=== PATIENT | male | born 1960 | race Caucasian/White ===

== ENCOUNTER 2017-04-16 13:57 | Inpatient (IN) | payer SELFPAY ==
[~2017-04-16] VITALS: Ht 188 cm; Wt 108.6 kg
--- OUTSIDE RECORDS SUMMARY | 2017-04-16 14:02 | XMS REPORT | Continuity of Care Document ---
Demographics Preferred Language Unknown Marital Status Unknown Yarsani Affiliation Unknown Race Unknown Ethnic Group Unknown Author Author [facility] Address Unknown Phone Unavailable Allergies Medications Problems Date Dx Coded Attending Type Code Diagnosis Diagnosed By 02/03/2011 719.41 PAIN IN JOINT INVOLVING SHOULDER REGION Procedures Results Encounters ACCT No. Visit Date/Time Discharge Status Pt. Type Provider Facility Loc./Unit Complaint [id number] 06/04/2012 10:52:00 06/04/2012 23: 59:59 CLS Outpatient
[2017-04-16] MEDS ORDERED: NS IV 1000 ML 1,000 ML IV ONE (14:45)
[2017-04-16] MEDS ORDERED: KETOROLAC 30 MG/ML VIAL IVP STA (14:45)
[2017-04-16 15:10] LABS: BASOPHILS % (AUTO) 0 % (0-10); EOSINOPHILS # (AUTO) 0.1 10^3/uL (0.0-0.3); EOSINOPHILS % (AUTO) 1 % (0-10); LYMPHOCYTES # (AUTO) 0.9 X 10^3 (1.0-4.0); LYMPHOCYTES % (AUTO) 10 % (12-44); MEAN CORPUSCULAR HEMOGLOBIN 30 PG (25-34); MEAN CORPUSCULAR HGB CONC 36 G/DL (32-36); MEAN CORPUSCULAR VOLUME 83 FL (80-99); MEAN PLATELET VOLUME 10.1 FL (7.4-10.4); MONOCYTES # (AUTO) 0.8 X 10^3 (0.0-1.0); MONOCYTES % (AUTO) 9 % (0-12); NEUTROPHILS # (AUTO) 7.2 X 10^3 (1.8-7.8); NEUTROPHILS % (AUTO) 81 % (42-75); PLATELET COUNT 200 10^3/uL (130-400); RED BLOOD COUNT 4.68 10^6/uL (4.35-5.85); RED CELL DISTRIBUTION WIDTH 11.6 % (10.0-14.5); WHITE BLOOD COUNT 8.9 10^3/uL (4.3-11.0)
--- NOTE | 2017-04-16 15:12 | ED GI ---
General Chief Complaint: Abdominal/GI Problems Stated Complaint: UTI Nursing Triage Note: PT SENT TO ED BY [facility] AT HIS [facility] WITH C/O RLQ PAIN. HE WAS SEEN FOR OUTPT CT AND FOUND TO HAVE OBSRUCTING KIDNEY STONE. PT IS C/O N/V. DENIES URINARY S/S. Sepsis Screen: No Definite Risk Source of Information: Patient Exam Limitations: No Limitations History of Present Illness Time Seen By Provider: 14:57 Initial Comments Here with report of right sided abdominal pain that has been going on on and off since December but markedly worse since Thanksgiving on 04/09. At that time, pain was much worse and he had vomiting and he went to the [facility] and was found to have blood in his urine. He was seen by his work doctor and told had a CT scan done which showed a 1.3 cm obstructing stone in the right ureter. Pain is worse and now he has some fever. Apparently had some blood in his urine. Denies breathing problems, vomiting or diarrhea. The vomiting that he had several days ago has resolved. Timing/Duration: 1 Week Severity/Quality: Moderate, Severe Location: Flank (right-sided), Suprapubic Radiation: No Radiation Activities at Onset: None Modifying Factors: Worsens With Movement, Worsens With Resting Associated Symptoms: No Back Pain, No Chest Pain, No Fever/Chills, No Nausea/ Vomiting, No Shortness of Air, No Weakness Allergies and Home Medications Allergies Coded Allergies: No Known Drug Allergies (Unverified , 04/16/17) Review of Systems Constitutional: see HPI, No chills, fever, No weakness EENTM: No Symptoms Reported Respiratory: No Symptoms Reported Cardiovascular: No Symptoms Reported Gastrointestinal: See HPI, Abdominal Pain Genitourinary: See HPI, Hematuria, Pain Musculoskeletal: no symptoms reported Skin: no symptoms reported All Other Systems Reviewed Negative Unless Noted: Yes Past Akwyhoz-Upbicq-Euqopo Hx Patient Social History Alcohol Use: Denies Use Recreational Drug Use: No Smoking Status: Former Smoker Type Used: Cigarettes 2nd Hand Smoke Exposure: No Recent Foreign Travel: No Contact w/Someone Who Travel: No Recent Infectious Disease Expo: No Recent Hopitalizations: No Physical Abuse: No Sexual Abuse: No Seasonal Allergies Seasonal Allergies: No Surgeries History of Surgeries: No Respiratory History of Respiratory Disorde: No Cardiovascular History of Cardiac Disorders: No Neurological History of Neurological Disord: No Genitourinary History of Genitourinary Disor: Yes Genitourinary Disorders: Kidney Stones Gastrointestinal History of Gastrointestinal Di: No Musculoskeletal History of Musculoskeletal Dis: No Endocrine History of Endocrine Disorders: No HEENT History of HEENT Disorders: No Psychosocial Suicide Risk Score: 0 Reviewed Nursing Assessment Reviewed/Agree w Nursing PMH: Yes Family Medical History Significant Family History: No Pertinent Family Hx Physical Exam Vital Signs VS - Last 72 Hours, by Label 04/16/17 14:40 Temp 99.1 Pulse 77 Resp 16 B/P (MAP) 196/95 (128) Pulse Ox 98 O2 Delivery Room Air Capillary Refill : Less Than 3 Seconds General Appearance: WD/WN, no apparent distress HEENT: PERRL/EOMI, pharynx normal Neck: full range of motion, supple Respiratory: lungs clear, normal breath sounds Cardiovascular: regular rate, rhythm, no murmur Gastrointestinal: soft, tenderness (right flank and right side of the abdomen) Extremities: non-tender, normal inspection Back: no vertebral tenderness, No CVA tenderness (R), No CVA tenderness (L) Neurologic/Psychiatric: alert, oriented x 3 Skin: normal color, warm/dry Focused Exam Evaluation Lactate Level Laboratory Tests 04/16/17 14:55: Lactic Acid Level 0.64 Lactic Acid Level Laboratory Tests Test 04/16/17 14:55 Lactic Acid Level 0.64 MMOL/L (0.50-2.00) Progress/Results/Core Measures Results/Orders Lab Results Laboratory Tests Test 04/16/17 14:30 04/16/17 14:55 04/16/17 16:08 Range/Units White Blood Count 8.9 4.3-11.0 10^3/uL Red Blood Count 4.68 4.35-5.85 10^6/uL Hemoglobin 14.0 13.3-17.7 G/DL Hematocrit 39 L 40-54 % Mean Corpuscular Volume 83 80-99 FL Mean Corpuscular Hemoglobin 30 25-34 PG Mean Corpuscular Hemoglobin Concent 36 32-36 G/DL Red Cell Distribution Width 11.6 10.0-14.5 % Platelet Count 200 130-400 10^3/uL Mean Platelet Volume 10.1 7.4-10.4 FL Neutrophils (%) (Auto) 81 H 42-75 % Lymphocytes (%) (Auto) 10 L 12-44 % Monocytes (%) (Auto) 9 0-12 % Eosinophils (%) (Auto) 1 0-10 % Basophils (%) (Auto) 0 0-10 % Neutrophils # (Auto) 7.2 1.8-7.8 X 10^3 Lymphocytes # (Auto) 0.9 L 1.0-4.0 X 10^3 Monocytes # (Auto) 0.8 0.0-1.0 X 10^3 Eosinophils # (Auto) 0.1 0.0-0.3 10^3/uL Basophils # (Auto) 0.0 0.0-0.1 10^3/uL Prothrombin Time 12.7 12.2-14.7 SEC INR Comment 0.9 0.8-1.4 Activated Partial Thromboplast Time 26 24-35 SEC Sodium Level 140 135-145 MMOL/L Potassium Level 4.0 3.6-5.0 MMOL/L Chloride Level 106 98-107 MMOL/L Carbon Dioxide Level 26 21-32 MMOL/L Anion Gap 8 5-14 MMOL/L Blood Urea Nitrogen 22 H 7-18 MG/DL Creatinine 1.45 H 0.60-1.30 MG/DL Estimat Glomerular Filtration Rate 50 BUN/Creatinine Ratio 15 Glucose Level 90 70-105 MG/DL Calcium Level 10.5 H 8.5-10.1 MG/DL Total Bilirubin 1.4 H 0.1-1.0 MG/DL Aspartate Amino Transf (AST/SGOT) 26 5-34 U/L Alanine Aminotransferase (ALT/SGPT) 44 0-55 U/L Alkaline Phosphatase 77 40-136 U/L Total Protein 6.9 6.4-8.2 GM/DL Albumin 4.0 3.2-4.5 GM/DL Lactic Acid Level 0.64 0.50-2.00 MMOL/L Urine Color YELLOW Urine Clarity CLEAR Urine pH 7 5-9 Urine Specific Gill 1.010 L 1.016-1.022 Urine Protein NEGATIVE NEGATIVE Urine Glucose (UA) NEGATIVE NEGATIVE Urine Ketones 2+ H NEGATIVE Urine Nitrite NEGATIVE NEGATIVE Urine Bilirubin NEGATIVE NEGATIVE Urine Urobilinogen NORMAL NORMAL MG/DL Urine Leukocyte Esterase 3+ H NEGATIVE Urine RBC (Auto) 1+ H NEGATIVE Urine RBC 5-10 H /HPF Urine WBC 10-25 H /HPF Urine Crystals NONE /LPF Urine Bacteria FEW H /HPF Urine Casts NONE /LPF Urine Mucus NEGATIVE /LPF Urine Culture Indicated YES My Orders Orders - CRISTAL YI MD Cbc With Automated Diff (04/16/17 14:45) Comprehensive Metabolic Panel (04/16/17 14:45) Lactic Acid Analyzer (04/16/17 14:45) Blood Culture (04/16/17 14:45) Sputum Culture (04/16/17 14:45) Ua Culture If Indicated (04/16/17 14:45) Protime With Inr (04/16/17 14:45) Partial Thromboplastin Time (04/16/17 14:45) Chest 1 View, Ap/Pa Only (04/16/17 14:45) O2 (04/16/17 14:45) Saline Lock/Iv-Start (04/16/17 14:45) Vital Signs Adult Sepsis Patie Q1H (04/16/17 14:45) Remove Rings In Anticipation O (04/16/17 14:45) Ns Iv 1000 Ml (Sodium Chloride 0.9%) (04/16/17 14:45) Ketorolac Injection (Toradol Injection) (04/16/17 14:45) Urine Culture (04/16/17 16:08) Ceftriaxone Injection (Rocephin Injectio (04/16/17 17:30) Medications Given in ED Current Medications Medications Dose Ordered Sig/Howard Route Start Time Stop Time Status Last Admin Dose Admin Sodium Chloride 1,000 ml @ 0 mls/hr Q0M ONCE IV 04/16/17 14:45 04/16/17 14:48 DC 04/16/17 14:56 0 MLS/HR Vital Signs/I&O Vital Sign - Last 12Hours 04/16/17 14:40 Temp 99.1 Pulse 77 Resp 16 B/P (MAP) 196/95 (128) Pulse Ox 98 O2 Delivery Room Air Blood Pressure Mean: 128 Progress Note : Progress Note Seen and evaluated. IV, labs, UA, blood cultures and lactic acid ordered due to fever and known obstructing kidney stone with concerns for UTI. Toradol 30 mg IV and will saline 1 L IV ordered. Monitor patient. Pain has improved. 1735: UTI noted. I have discussed the case with Dr. Kuhn. He is currently out of town. He is recommending IV fluids and antibiotics with potential for nephrostomy tube placement if he becomes worse but otherwise he can see him next week for procedure to break the stone and/or stenting. I did discuss the case with Dr. Macias and she has talked with Dr. Kuhn as well. She will except patient for admission. Rocephin 1 g IV has been initiated. Pain was fairly well controlled with Toradol although we will switch that given his creatinine level. Pain control with fentanyl when necessary with nausea control with Zofran and Tylenol for fever as needed will be ordered. Admit, inpatient status. Patient and family agree with plan. Diagnostic Imaging Diagonstic Imaging: CT Plain Films/CT/US/NM/MRI: abdomen, pelvis Comments This is a review of CT done earlier today as outpatient. NAME: [facility] REC#: [id number] PT STATUS: REG CLI : 1960 PHYSICIAN: TOMÁS YADAV APRN ADMIT DATE: 04/16/17/RAD Signed Date of Exam: 04/16/17 CT ABDOMEN/PELVIS WO PROCEDURE: CT abdomen and pelvis without contrast. TECHNIQUE: Multiple contiguous axial images were obtained through the abdomen and pelvis without the use of intravenous contrast. INDICATION: Severe abdominal pain. Hematuria. FINDINGS: The lung bases demonstrate no significant abnormality. The liver is hypodense compatible with fatty infiltration. The gallbladder demonstrates no calcified stones or evidence of cholecystitis. The pancreas and the left adrenal gland appear unremarkable. The right adrenal gland demonstrates a 2.3-cm nodule with low-density suggestive of an adrenal adenoma. The right kidney demonstrates moderate hydronephrosis secondary to a 1.3-cm stone at the UPJ. There is perinephric stranding probably secondary to obstruction with or without superimposed infection. Correlate clinically. There is mild wall thickening in the urinary bladder which could relate to cystitis or BPH. Nonspecific calcifications in the prostate are seen. The outer contour of the prostate is not significantly enlarged however. The left kidney demonstrates no hydronephrosis and no stones. No significant free fluid or fluid collection in the abdomen or pelvis is seen. The appendix appears normal. The abdominal aorta is normal in caliber. No para-aortic significantly enlarged lymph node is seen. The osseous structures demonstrate mild degenerative changes in the lower thoracic spine and in the lumbar spine. There is also mild degenerative change in the SI joints. IMPRESSION: 1. There is moderate right hydronephrosis secondary to an obstructive stone measuring 1.3 cm at the UPJ. Perinephric stranding could be from obstruction with or without superimposed infection. Correlate clinically. 2. Hepatic steatosis. Ms Shiloh Harrell nurse practitioner covering for Tomás Yadav APRN, is informed of the findings at time of dictation. Dictated by: Dictated on workstation # [id number] Dict: 04/16/17 1240 Trans: 04/16/17 1256 Interpreted by: MANJIT DUENAS MD Electronically signed by: MANJIT DUENAS MD 04/16/17 1256 Departure Communication (Admissions) Time/Spoke to Admitting Phy: 17:35 Impression Impression: Primary Impression: Ureteral stone with hydronephrosis Additional Impression: Urinary tract infection Qualified Codes: N30.00 - Acute cystitis without hematuria Disposition: ADMITTED INPATIENT Condition: Stable Admissions Decision to Admit Reason: Admit from ER (General) Decision to Admit/Date: Apr 16, 2017 Time/Decision to Admit Time: 17:35 Departure-Patient Inst. Referrals: NO,LOCAL PHYSICIAN (PCP/Family) Primary Care Physician CRISTAL YI MD Apr 16, 2017 15:12
[2017-04-16 15:16] LABS: INR 0.9 (0.8-1.4); PROTHROMBIN TIME PATIENT 12.7 SEC (12.2-14.7)
[2017-04-16 15:21] LABS: BILIRUBIN,TOTAL 1.4 MG/DL (0.1-1.0); CALCIUM 10.5 MG/DL (8.5-10.1); CREATININE SERUM 1.45 MG/DL (0.60-1.30); TOTAL PROTEIN 6.9 GM/DL (6.4-8.2)
--- NOTE | 2017-04-16 15:26 | Diagnostic Imaging Report ---
Portable upright radiograph of the chest. INDICATION: UTI and fever. FINDINGS: The lungs appear clear. The heart size is at the upper limits of normal. No effusion or pneumothorax. The mediastinum and arnel appear unremarkable. IMPRESSION: Borderline cardiac size. No focal infiltrate. Dictated by: Dictated on workstation # [id number]
[2017-04-16 16:27] LABS: BILIRUBIN,URINE NEGATIVE (NEGATIVE); KETONES,URINE 2+ (NEGATIVE); LEUKOCYTE ESTERASE ,URINE 3+ (NEGATIVE); NITRITE,URINE NEGATIVE (NEGATIVE); PH,URINE 7 (5-9); PROTEIN,URINE NEGATIVE (NEGATIVE); UROBILINOGEN,URINE NORMAL (NORMAL)
[2017-04-16] MEDS ORDERED: cefTRIAXone INJECTION 1,000 MG in NS (IVPB) 50 ML IV ONE (17:30)
--- OUTSIDE RECORDS SUMMARY | 2017-04-16 18:19 | XMS REPORT | Continuity of Care Document ---
Demographics Preferred Language Unknown Marital Status Unknown Druze Affiliation Unknown Race Unknown Ethnic Group Unknown Author Author [facility]tr [facility] Address Unknown Phone Unavailable Allergies Medications Problems Date Dx Coded Attending Type Code Diagnosis Diagnosed By 02/03/2011 719.41 PAIN IN JOINT INVOLVING SHOULDER REGION Procedures Results Encounters ACCT No. Visit Date/Time Discharge Status Pt. Type Provider Facility Loc./Unit Complaint [id number] 06/04/2012 10:52:00 06/04/2012 23: 59:59 CLS Outpatient
[2017-04-16 18:30] VITALS: BP 180/92
[2017-04-16] MEDS ORDERED: CATHETER FLUSH 10 ML SYR IV PRN (18:45)
[2017-04-16] MEDS ORDERED: ACETAMINOPHEN 500 MG TAB (TYLENOL) PO PRN (18:45)
[2017-04-16] MEDS: NS IV 1000 ML 1,000 ML IV SCH (19:43)
[2017-04-16 20:00] VITALS: BP 189/94
[2017-04-16] MEDS: fentaNYL INJECTION 100 MCG/2 ML AMP IV PRN (21:32)
[2017-04-17] VITALS (8 sets, daily range): BP systolic 160–184; BP diastolic 78–100
[2017-04-17] MEDS: ONDANSETRON 4 MG/2 ML (SDV) Z0FRAN IV PRN ×2 (03:55→15:16)
[2017-04-17] MEDS: fentaNYL INJECTION 100 MCG/2 ML AMP IV PRN ×2 (03:56→23:53)
[2017-04-17] MEDS: NS IV 1000 ML 1,000 ML IV SCH ×3 (03:56→19:47)
[2017-04-17 05:18] LABS: BASOPHILS % (AUTO) 1 % (0-10); EOSINOPHILS # (AUTO) 0.4 10^3/uL (0.0-0.3); EOSINOPHILS % (AUTO) 5 % (0-10); LYMPHOCYTES # (AUTO) 0.7 X 10^3 (1.0-4.0); LYMPHOCYTES % (AUTO) 10 % (12-44); MEAN CORPUSCULAR HEMOGLOBIN 29 PG (25-34); MEAN CORPUSCULAR HGB CONC 35 G/DL (32-36); MEAN CORPUSCULAR VOLUME 84 FL (80-99); MONOCYTES # (AUTO) 0.6 X 10^3 (0.0-1.0); MONOCYTES % (AUTO) 9 % (0-12); NEUTROPHILS # (AUTO) 5.2 X 10^3 (1.8-7.8); NEUTROPHILS % (AUTO) 75 % (42-75); PLATELET COUNT 132 10^3/uL (130-400); RED BLOOD COUNT 4.66 10^6/uL (4.35-5.85); RED CELL DISTRIBUTION WIDTH 11.7 % (10.0-14.5); WHITE BLOOD COUNT 6.9 10^3/uL (4.3-11.0)
[2017-04-17 05:35] LABS: CREATININE SERUM 1.39 MG/DL (0.60-1.30); POTASSIUM 3.9 MMOL/L (3.6-5.0)
[2017-04-17] MEDS ORDERED: INFLUENZA TRIvalent 2017-2018 0.5 ML/45 MCG SYR IM ONE (07:30)
[2017-04-17] MEDS ORDERED: MULT-35 PO ×2 (09:21)
[2017-04-17] MEDS: amLODIPine 5 MG (NORVASC) TAB PO SCH (10:33)
[2017-04-17] MEDS: cefTRIAXone 1 GM/NS 50 ML IVPB IV SCH ×2 (10:34)
[2017-04-17] MEDS ORDERED: LISI-595 PO ×2 (11:05)
--- NOTE | 2017-04-17 11:09 | History & Physical-Hospitalist ---
HPI History of Present Illness: HPI/Chief Complaint CC: Kidney stone HPI: Patient presented to the ER with c/o fever and abdominal pain and was found to have an obstructed stone and pyelonephritis. Dr Kuhn was consulted and I received recs. 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 Pt is unsure of the name, I believe it is Dr. Meadows. Pt states that the kidney stone hurts. Abx were discussed. Pt was informed that the stone will need to be blasted to reduce damage to the kidney. Pt was informed that an appointment was scheduled for the pt with Dr. Kuhn on Thursday and he will have the stone blasted on Thursday. Pt was informed that even though he has no bleeding now, this may occur if the stone moves BP was discussed and states that the pt was put on BP meds earlier this year. Pt was advised to ambulate Pt confirms pharmacy as [facility] Pt denies heart and lung problems Physical exam stable. I informed the pt that I will evaluate his meds and get them restarted. Scribed by Shiloh Maya under direct supervision of Dr. Jada Marti. Source: patient Exam Limitations: no limitations Date Seen 04/17/17 Time Seen by Provider: 10:00 Attending Physician Jada Marti DO PCP No,Local Physician Referring Physician Date of Admission Apr 16, 2017 at 17:47 Home Medications & Allergies Home Medications Reviewed patient Home Medication Reconciliation Form Allergies Allergies Coded Allergies No Known Drug Allergies (Dhelujsbvd93/30/17) Past Tikmhxl-Dtghft-Bfbzsc Hx Patient Social History Marrital Status: Employed/Student: employed ([employer]) Alcohol Use: Denies Use Recreational Drug Use: No Smoking Status: Former Smoker Type Used: Cigarettes 2nd Hand Smoke Exposure: No Physical Abuse Screen: No Sexual Abuse: No Recent Foreign Travel: No Contact w/other who traveled: No Recent Hopitalizations: No Recent Infectious Disease Expo: No Seasonal Allergies Seasonal Allergies: No Surgeries No Respiratory No Currently Using CPAP: No Currently Using BIPAP: No Cardiovascular Yes Hypertension Neurological No Genitourinary Yes Kidney Stones Gastrointestinal No Musculoskeletal No Endocrine History of Endocrine Disorders: No HEENT History of HEENT Disorders: No Cancer No Psychosocial History of Psychiatric Problem: No Blood Transfusions History of Blood Disorders: No Adverse Reaction to a Blood Tr: No Reviewed Nursing Assessment Reviewed/Agree w Nursing PMH: Yes Family Medical History Significant Family History: No Pertinent Family Hx Review of Systems Constitutional: see HPI, fever, malaise, weakness EENTM: no symptoms reported Respiratory: no symptoms reported Cardiovascular: no symptoms reported Gastrointestinal: nausea, vomiting Genitourinary: decreased output, hematuria, hesitancy Musculoskeletal: back pain Skin: no symptoms reported Psychiatric/Neurological: No Symptoms Reported All Other Systems Reviewed Negative Unless Noted: Yes Physical Exam Physical Exam Vital Signs Vital Sign - Last 12Hours 04/16/17 14:40 Temp 99.1 Pulse 77 Resp 16 B/P (MAP) 196/95 (128) Pulse Ox 98 O2 Delivery Room Air Capillary Refill : Less Than 3 Seconds General Appearance: No Apparent Distress, WD/WN, Chronically ill, Obese Eyes: Bilateral Eye Normal Inspection, Bilateral Eye PERRL HEENT: PERRL/EOMI, Normal ENT Inspection, Pharynx Normal Neck: Full Range of Motion, Normal Inspection, Non Tender, Supple, Carotid Bruit Respiratory: Chest Non Tender, Lungs Clear, Normal Breath Sounds, No Accessory Muscle Use, No Respiratory Distress Cardiovascular: Regular Rate, Rhythm, No Edema, No Gallop, No JVD, No Murmur, Normal Peripheral Pulses Gastrointestinal: Normal Bowel Sounds, No Organomegaly, No Pulsatile Mass, Non Tender, Soft Back: Normal Inspection, No CVA Tenderness, No Vertebral Tenderness Extremity: Normal Capillary Refill, Normal Inspection, Normal Range of Motion, Non Tender, No Calf Tenderness, No Pedal Edema Neurologic/Psychiatric: Alert, Oriented x3, No Motor/Sensory Deficits, Normal Mood/Affect Skin: Normal Color, Warm/Dry Lymphatic: No Adenopathy Results Results/Procedures Lab Laboratory Tests 04/16/17 14:30 04/17/17 04:50 Assessment/Plan Admission Diagnosis Assessment: Obstructive kidney stone with acute pyelonephritis in acute renal failure Hypertension [id number] Assessment and Plan Plan: Norvasc 5mg now then daily Hydralizine prn Follow up with Dr. Kuhn 04/20/17 at 1230 Ambulate Continue IVF fluids Diagnosis/Problems Diagnosis/Problems (1) Ureteral stone with hydronephrosis Status: Acute Assessment & Plan: Lithotripsy Wed Dr Kuhn consult Thursday at his office 1230 (2) Urinary tract infection Status: Acute Assessment & Plan: Maintain abx Qualifiers: Qualified Codes: N30.00 - Acute cystitis without hematuria (3) Hypertension Status: Chronic Assessment & Plan: Norvasc 5mg daily Hold ACEi due to elevated creatinine Qualifiers: Qualified Codes: I10 - Essential (primary) hypertension (4) Acute renal failure Status: Acute Qualifiers: Qualified Codes: N17.9 - Acute kidney failure, unspecified Clinical Quality Measures DVT/VTE Risk/Contraindication: Risk Factor Score Per Nursin RFS Level Per Nursing on Admit: 1=Low/No VTE PPX JADA MARTI DO Apr 17, 2017 11:09
[2017-04-17] MEDS: hydrALAZINE (APRESOLINE) 25 MG TAB PO PRN ×2 (15:32→22:21)
[2017-04-17] MEDS: cloNIDine 0.1 MG (CATAPRES) TAB PO PRN (18:26)
[2017-04-18] VITALS (10 sets, daily range): BP systolic 152–198; BP diastolic 72–110
[2017-04-18] MEDS: fentaNYL INJECTION 100 MCG/2 ML AMP IV PRN ×2 (02:47→14:56)
[2017-04-18] MEDS: cloNIDine 0.1 MG (CATAPRES) TAB PO PRN (02:47)
[2017-04-18] MEDS: NS IV 1000 ML 1,000 ML IV SCH ×2 (04:23→10:24)
[2017-04-18] MEDS: hydrALAZINE (APRESOLINE) 25 MG TAB PO PRN ×2 (04:29→10:31)
[2017-04-18] MEDS: ONDANSETRON 4 MG/2 ML (SDV) Z0FRAN IV PRN (06:56)
[2017-04-18] MEDS ORDERED: MULTIVIT W/MINERALS TAB (THERAGRAN M) PO SCH (07:00)
[2017-04-18] MEDS: amLODIPine 5 MG (NORVASC) TAB PO SCH (08:44)
[2017-04-18] MEDS: cefTRIAXone 1 GM/NS 50 ML IVPB IV SCH ×2 (08:45)
[2017-04-18] MEDS ORDERED: lisINopril 10 MG (PRINIVIL) TAB PO SCH (09:00)
[2017-04-18] MEDS ORDERED: amLODIPine 5 MG (NORVASC) TAB PO ONE (12:15)
[2017-04-18] MEDS ORDERED: CLON0.1T PO ×2 (12:20)
[2017-04-18] MEDS ORDERED: OXYC-202 PO ×2 (12:20)
[2017-04-18] MEDS ORDERED: AMLO10TA4 PO ×2 (12:20)
[2017-04-18] MEDS ORDERED: TRIA1CAP PO ×2 (12:20)
[2017-04-18] MEDS ORDERED: CIPR500T4 PO ×2 (12:20)
[2017-04-18 12:25] LABS: BASOPHILS # (AUTO) 0.1 10^3/uL (0.0-0.1); BASOPHILS % (AUTO) 1 % (0-10); EOSINOPHILS # (AUTO) 0.1 10^3/uL (0.0-0.3); EOSINOPHILS % (AUTO) 1 % (0-10); LYMPHOCYTES # (AUTO) 0.9 X 10^3 (1.0-4.0); LYMPHOCYTES % (AUTO) 13 % (12-44); MEAN CORPUSCULAR HEMOGLOBIN 29 PG (25-34); MEAN CORPUSCULAR HGB CONC 35 G/DL (32-36); MEAN CORPUSCULAR VOLUME 83 FL (80-99); MEAN PLATELET VOLUME 9.8 FL (7.4-10.4); MONOCYTES # (AUTO) 0.7 X 10^3 (0.0-1.0); MONOCYTES % (AUTO) 10 % (0-12); NEUTROPHILS # (AUTO) 5.3 X 10^3 (1.8-7.8); NEUTROPHILS % (AUTO) 75 % (42-75); PLATELET COUNT 207 10^3/uL (130-400); RED BLOOD COUNT 4.69 10^6/uL (4.35-5.85); RED CELL DISTRIBUTION WIDTH 11.7 % (10.0-14.5); WHITE BLOOD COUNT 7.1 10^3/uL (4.3-11.0)
--- NOTE | 2017-04-18 12:26 | Discharge Summary-Hospitalist ---
Diagnosis/Chief Complaint Date of Admission Apr 16, 2017 at 17:47 Date of Discharge Discharge Date: Apr 18, 2017 Admission Diagnosis Assessment: Obstructive kidney stone with acute pyelonephritis in acute renal failure Hypertension [id number] Discharge Diagnosis Pt doing well, pain is controlled and urination is nl. Conferred with Dr Kuhn and arrangements made for appt Thursday04/20/17 1230 for plans of lithotripsy Wed. BP meds sent into pharmacy due to what appears to be a long-standing issue Hold ACEi due to increased creat (1) Ureteral stone with hydronephrosis Status: Acute Assessment & Plan: Lithotripsy Wed Dr Kuhn consult Thursday at his office 1230 (2) Urinary tract infection Status: Acute Assessment & Plan: Maintain abx even though UCx NGTD due to how large the stone is and the increased risk for infection (3) Hypertension Status: Chronic Assessment & Plan: 04/17/17: Norvasc 5mg daily Hold ACEi due to elevated creatinine 04/18/17: Add Norvasc 10mg and Dyazide and Clonidine for DC meds (4) Acute renal failure Status: Acute Discharge Summary Discharge Physical Examination Allergies: Coded Allergies: No Known Drug Allergies (Unverified , 04/16/17) Vitals & I&Os Vital Signs Date Time Temp Pulse Resp B/P (MAP) Pulse Ox O2 Delivery O2 Flow Rate FiO2 04/18/17 10:23 176/72 (106) 04/18/17 09:41 96.2 04/18/17 07:46 75 20 95 Room Air Hospital Course Hospital course: Patient had an uneventful hospital course he was admitted for IV fluids along with antibiotics empiric treatment for large kidney stone with mild hydronephrosis obstruction. Urology was consulted and the plan was to see in follow-up on Thursday once pain was controlled and to be discharged on antibiotic and plans for lithotripsy on Thursday with complete the treatment. High blood pressure remained an issue which appears to be long-standing and certainly needs close follow-up for that his primary care provider is the urgent care began who goes to his workplace. Labs (last 24 hrs) Microbiology 04/16/17 Blood Culture - Preliminary, Resulted No growth 04/16/17 Urine Culture - Preliminary, Resulted NO GROWTH Discharge Home Medications: Active Scripts Active Ciprofloxacin HCl 500 Mg Tablet 500 Mg PO BID Dyazide 37.5-25 Capsule (Triamterene/Hydrochlorothiazid) 1 Each Capsule 1 Each PO DAILY Clonidine HCl 0.1 Mg Tablet 0.1 Mg PO TID Norvasc (Amlodipine Besylate) 10 Mg Tablet 10 Mg PO DAILY Percocet 10-325 mg Tablet (Oxycodone HCl/Acetaminophen) 1 Each Tablet 1 Each PO TID PRN Reported Zestril (Lisinopril) 10 Mg Tablet 10 Mg PO DAILY Daily Multiple Vitamin (Multivitamin) 1 Each Tablet 1 Tab PO DAILY Instructions to patient/family Please see electronic discharge instructions given to patient. Clinical Quality Measures DVT/VTE Risk/Contraindication: Risk Factor Score Per Nursin RFS Level Per Nursing on Admit: 1=Low/No VTE PPX Problem Qualifiers (1) Urinary tract infection: Urinary tract infection type: acute cystitis Hematuria presence: without hematuria Qualified Codes: N30.00 - Acute cystitis without hematuria (2) Hypertension: Hypertension type: essential hypertension Qualified Codes: I10 - Essential ( primary) hypertension (3) Acute renal failure: Acute renal failure type: unspecified Qualified Codes: N17.9 - Acute kidney failure, unspecified PEDRO AMRTI DO Apr 18, 2017 12:26
[2017-04-18] MEDS ORDERED: LACT20SO2 PO ×2 (12:27)
[2017-04-18 12:44] LABS: ALBUMIN 3.8 GM/DL (3.2-4.5); BILIRUBIN,TOTAL 0.8 MG/DL (0.1-1.0); CALCIUM 10.1 MG/DL (8.5-10.1); CREATININE SERUM 1.46 MG/DL (0.60-1.30); TOTAL PROTEIN 6.7 GM/DL (6.4-8.2)
--- NOTE | 2017-04-18 17:32 | Diagnostic Imaging Report ---
Supine abdomen at 2:02 p.m. INDICATION: Right flank pain. Two supine views were obtained. FINDINGS: The recent CT abdomen/pelvis exam of 04/16/2017 noted moderate hydronephrosis of the right kidney due to an obstructive 1.3 cm calculus at the ureteropelvic junction. On this study, the obstructive calculus is again evident and does not seem to have changed significantly in position. No new abnormality has developed otherwise. The calcifications involving the prostate gland seen previously are again evident. There is gas in both the large and small bowel in a nonspecific fashion. There is no sign of a bowel obstruction. There is no mass or organomegaly identified. IMPRESSION: 1. The obstructive calculus within the right renal pelvis seen previously is again evident and does not seem to have changed significantly. If further evaluation is desired, then repeat CT abdomen/pelvis exam would be recommended. 2. There is no new abnormality noted otherwise. Dictated by: Dictated on workstation # [id number]
== END 2017-04-18 16:00 | disposition home or self-care (01) | DRG 694 ==
LOC: EDUNIT# 13:57 → ER 13:59 → 4TH 17:47
PROVIDERS: ADMIT Internal Medicine; ATTEND Internal Medicine
DX: N13.2 Hydronephrosis with renal and ureteral calculous obstruction (principal); N30.00 Acute cystitis without hematuria; N17.9 Acute kidney failure, unspecified; I10 Essential (primary) hypertension; Z87.891 Personal history of nicotine dependence
CPT/HCPCS: 36415; 71010; 74000; 80048; 80053; 81000; 83605; 85025; 85610; 85730; 87040; 87088

== ENCOUNTER → 2017-04-16 | Outpatient (CLI) | payer SELFPAY ==
[~2017-04-16] MED LIST: AMLO10TA4 PO; CIPR500T4 PO; CLON0.1T PO; LACT20SO2 PO; LISI-595 PO; MULT-35 PO; OXYC-202 PO; TRIA1CAP PO
--- NOTE | 2017-04-16 12:54 | Diagnostic Imaging Report ---
PROCEDURE: CT abdomen and pelvis without contrast. TECHNIQUE: Multiple contiguous axial images were obtained through the abdomen and pelvis without the use of intravenous contrast. INDICATION: Severe abdominal pain. Hematuria. FINDINGS: The lung bases demonstrate no significant abnormality. The liver is hypodense compatible with fatty infiltration. The gallbladder demonstrates no calcified stones or evidence of cholecystitis. The pancreas and the left adrenal gland appear unremarkable. The right adrenal gland demonstrates a 2.3-cm nodule with low-density suggestive of an adrenal adenoma. The right kidney demonstrates moderate hydronephrosis secondary to a 1.3-cm stone at the UPJ. There is perinephric stranding probably secondary to obstruction with or without superimposed infection. Correlate clinically. There is mild wall thickening in the urinary bladder which could relate to cystitis or BPH. Nonspecific calcifications in the prostate are seen. The outer contour of the prostate is not significantly enlarged however. The left kidney demonstrates no hydronephrosis and no stones. No significant free fluid or fluid collection in the abdomen or pelvis is seen. The appendix appears normal. The abdominal aorta is normal in caliber. No para-aortic significantly enlarged lymph node is seen. The osseous structures demonstrate mild degenerative changes in the lower thoracic spine and in the lumbar spine. There is also mild degenerative change in the SI joints. IMPRESSION: 1. There is moderate right hydronephrosis secondary to an obstructive stone measuring 1.3 cm at the UPJ. Perinephric stranding could be from obstruction with or without superimposed infection. Correlate clinically. 2. Hepatic steatosis. Shiloh Harrell nurse practitioner covering for Tomás Yu APRN, is informed of the findings at time of dictation. Dictated by: Dictated on workstation # [id number]
== END ==
LOC: RAD 12:19
DX: N13.0 Hydronephrosis with ureteropelvic junction obstruction (principal); K76.0 Fatty (change of) liver, not elsewhere classified
CPT/HCPCS: 74176

== ENCOUNTER → 2017-04-20 | Outpatient (CLI) | payer SELFPAY ==
--- NOTE | 2017-04-20 12:21 | Diagnostic Imaging Report ---
INDICATION: Renal calculus. Supine views of the abdomen are obtained with comparison made to study of 04/18/2017. Similar to the previous study, a 1.3-cm calculus just medial to the lower pole of the right kidney has not significantly changed. There are calcified granulomas noted in the spleen. There is also dense calcification noted within the prostate gland. These findings have not significantly changed. IMPRESSION: Stable appearance of calculus along the medial aspect of the lower pole of the right kidney. There has been no significant migration or other adverse change. Dictated by: Dictated on workstation # [id number]
== END ==
LOC: RAD 09:03
PROVIDERS: ATTEND Internal Medicine
DX: N13.2 Hydronephrosis with renal and ureteral calculous obstruction (principal)
CPT/HCPCS: 74000

== ENCOUNTER → 2020-07-20 | Outpatient (CLI) | payer SELFPAY ==
[~2020-07-20] VITALS: Ht 188 cm; Wt 101.0 kg
[~2020-07-20] MED LIST changes: +BAMLANIVIMAB (NON FORM) 700 MG in NS (IVPB) 100 ML IV ONE; -CIPR500T4 PO; +CIPR500T5 PO; +CLN.1T PO; -CLON0.1T PO; +EPINEPHrine INJECTION 1 MG/ML AMP IM PRN; -OXYC-202 PO; +OXYC1TAB12 PO; +diphenhydrAMINE 50 MG/ML INJ (BENADRYL) IV PRN
[2020-07-20 07:54] VITALS: BP 166/91
[2020-07-20 09:29] VITALS: BP 131/84
== END ==
LOC: INFUSION 07:55
PROVIDERS: ATTEND Nurse Practitioner Family
DX: Z23 Encounter for immunization (principal); U07.1 COVID-19

== ENCOUNTER → 2021-06-24 | Outpatient (CLI) | payer SELFPAY ==
[~2021-06-24] MED LIST changes: -BAMLANIVIMAB (NON FORM) 700 MG in NS (IVPB) 100 ML IV ONE; -EPINEPHrine INJECTION 1 MG/ML AMP IM PRN; -diphenhydrAMINE 50 MG/ML INJ (BENADRYL) IV PRN
[2021-06-24 15:45] LABS: BASOPHILS # (AUTO) 0.1 10^3/uL (0.0-0.1); BASOPHILS % (AUTO) 0 % (0-10); EOSINOPHILS % (AUTO) 0 % (0-10); HEMATOCRIT 48 % (40-54); HEMOGLOBIN 16.4 g/dL (13.3-17.7); LYMPHOCYTES # (AUTO) 0.9 10^3/uL (1.0-4.0); LYMPHOCYTES % (AUTO) 7 % (12-44); MEAN CORPUSCULAR HEMOGLOBIN 28 pg (25-34); MEAN CORPUSCULAR HGB CONC 34 g/dL (32-36); MEAN CORPUSCULAR VOLUME 83 fL (80-99); MEAN PLATELET VOLUME 10.1 fL (9.0-12.2); MONOCYTES # (AUTO) 1.3 10^3/uL (0.0-1.0); MONOCYTES % (AUTO) 9 % (0-12); NEUTROPHILS # (AUTO) 12.1 10^3/uL (1.8-7.8); NEUTROPHILS % (AUTO) 84 % (42-75); PLATELET COUNT 208 10^3/uL (130-400); WHITE BLOOD COUNT 14.5 10^3/uL (4.3-11.0)
[2021-06-24 16:05] LABS: ALBUMIN 4.4 GM/DL (3.2-4.5); BILIRUBIN,TOTAL 1.5 MG/DL (0.1-1.0); CALCIUM 11.4 MG/DL (8.5-10.1); CREATININE SERUM 1.8 MG/DL (0.60-1.30); POTASSIUM 4.5 MMOL/L (3.6-5.0); TOTAL PROTEIN 7.8 GM/DL (6.4-8.2)
[2021-06-24 16:18] LABS: LYMPHOCYTES % (MANUAL) 9 %; MONOCYTES % (MANUAL) 5 %; NEUTROPHILS % (MANUAL) 86 %; RBC MORPH NORMAL
--- NOTE | 2021-06-24 17:29 | Diagnostic Imaging Report ---
PROCEDURE: CT abdomen and pelvis without contrast. TECHNIQUE: Multiple contiguous axial images were obtained through the abdomen and pelvis without the use of intravenous contrast. Auto Exposure Controls were utilized during the CT exam to meet ALARA standards for radiation dose reduction. INDICATION: Right lower quadrant pain, vomiting COMPARISON: Radiographs dated 04/20/[address] dated 04/16/2017. FINDINGS: Subpleural left lower lobe pulmonary nodule is unchanged since 2017, therefore, benign. The visualized lung bases are otherwise clear. Diffusely decreased density of the liver, felt to relate to minimal fatty filtration of the liver. The unenhanced liver is otherwise unremarkable. Calcified splenic granuloma. Otherwise, the unenhanced spleen is unremarkable. A 2.3 cm hypodensity within the right adrenal gland with the Hounsfield units of 12 is again identified and not significantly changed since 2017. The left adrenal gland is unremarkable. The pancreas is unremarkable. The left kidney and left ureter are unremarkable. A 0.6 cm calculus is noted within the proximal right ureter with resulting moderate right hydroureteronephrosis. Several additional right-sided renal calculi are present. Minimal right perinephric fat stranding. The mid and distal right ureter are unremarkable. Mild vascular calcifications without aneurysmal dilatation of the abdominal aorta. The urinary bladder is unremarkable. Prostatic calcifications are present. Small fat-containing left inguinal hernia. The appendix is unremarkable. No bowel obstruction or pneumatosis. No significant adenopathy, free air, or free fluid within the abdomen or pelvis. Scattered osseous degenerative changes without acute osseous abnormality. IMPRESSION: Moderate right hydroureteronephrosis secondary to a 6 mm calculus within the proximal right ureter. Given right perinephric fat stranding, superimposed infection not excluded. Several additional small right renal calculi. Benign right adrenal myelolipoma lipoma, stable since 2017. Minimal fatty infiltration of the liver. Additional findings as above. Report given to RIKA Clark (and faxed) at 5:24 PM 06/24/2021/cb Dictated by: Dictated on workstation # [id number]
== END ==
LOC: RAD 15:25
PROVIDERS: ATTEND Physician Assistant
DX: Z04.2 Encounter for examination and observation following work accident (principal); Z76.0 Encounter for issue of repeat prescription; N13.30 Unspecified hydronephrosis; N20.2 Calculus of kidney with calculus of ureter; D35.00 Benign neoplasm of unspecified adrenal gland; D73.89 Other diseases of spleen; N39.0 Urinary tract infection, site not specified; J20.8 Acute bronchitis due to other specified organisms; S97.122D Crushing injury of left lesser toe(s), subsequent encounter; E72.59 Other disorders of glycine metabolism; B02.39 Other herpes zoster eye disease; I10 Essential (primary) hypertension; R93.2 Abnormal findings on diagnostic imaging of liver and biliary tract; R91.1 Solitary pulmonary nodule; X58.XXXD Exposure to other specified factors, subsequent encounter
CPT/HCPCS: 36415; 74176; 80053; 82150; 83690; 85007; 85027

== ENCOUNTER → 2021-06-27 | Outpatient (CLI) | payer OTHER ==
[~2021-06-27] MED LIST changes: +ACHD5005 PO; +KETO10TA PO; +NITR-65 PO; +TMSL.4C PO
--- NOTE | 2021-06-27 11:47 | Diagnostic Imaging Report ---
Indication: Right flank pain KUB 11:40 AM There is a 6 mm calculus projecting over the right ureter at the level of the L4 transverse process. 6 mm calculus projecting over the inferior pole the right kidney. IMPRESSION: Right nephrolithiasis. Right ureterolithiasis. Dictated by: Dictated on workstation # [id number]
== END ==
LOC: RAD 10:58
PROVIDERS: ATTEND Urology
DX: N20.2 Calculus of kidney with calculus of ureter (principal)
CPT/HCPCS: 74018

== ENCOUNTER 2021-06-28 05:40 | Outpatient (CLI) | payer SELFPAY ==
[~2021-06-28] VITALS: Ht 188 cm; Wt 92.3 kg
[~2021-06-28 05:40] MED LIST changes: -ACHD5005 PO; -KETO10TA PO; -NITR-65 PO; -TMSL.4C PO
[2021-06-28] MEDS ORDERED: TMSL.4C PO (09:11)
[2021-06-28] MEDS ORDERED: ACHD5005 PO (09:11)
== END 2021-06-28 10:09 | disposition home or self-care (01) ==
LOC: PREOP 05:40
PROVIDERS: ATTEND Urology
DX: Z01.818 Encounter for other preprocedural examination (principal)

== ENCOUNTER 2021-07-02 07:26 | Day surgery (SDC) | payer OTHER ==
[~2021-07-02] VITALS: Ht 182.9 cm; Wt 92.3 kg
[2021-07-02] VITALS (11 sets, daily range): BP systolic 114–178; BP diastolic 67–98
[~2021-07-02 07:26] MED LIST changes: +ACHD5005 PO; +TMSL.4C PO
--- NOTE | 2021-07-02 07:39 | Progress Note-Pre Operative ---
Pre-Operative Progress Note H&P Reviewed The H&P was reviewed, patient examined and no changes noted. Date Seen by Provider: Jul 02, 2021 Time Seen by Provider: 07:39 Date H&P Reviewed: Jul 02, 2021 Time H&P Reviewed: 07:39 Pre-Operative Diagnosis: RT PROXIMAL URETERAL STONE AZEEM CISNEROS MD Jul 02, 2021 07:39
[2021-07-02] MEDS ORDERED: cefTRIAXone 1 GM PRE-MIX 50 ML IV ONE ×3 (07:40→07:45)
[2021-07-02] MEDS ORDERED: LACTATED RINGERS 1,000 ML IV PRN ×2 (07:45)
--- NOTE | 2021-07-02 08:22 | Diagnostic Imaging Report ---
ABDOMEN/KUB 1VIEW INDICATION: Status post lithotripsy for renal calculi. COMPARISON: 06/27/2021 TECHNIQUE: AP view of the abdomen FINDINGS: Unchanged 6 mm stone in the lower pole right kidney. Previously noted stone in the region of the mid right ureter is not seen on today's examination, though there is bowel gas overlying this region. No new soft tissue mineralizations. Dystrophic calcification in pelvis are unchanged and likely within the prostate. IMPRESSION: 1. Unchanged 6 mm right renal stone. 2. Right mid ureteral stone is not seen on today's examination and could be obscured by overlying bowel gas versus resolved after lithotripsy. Dictated by: Dictated on workstation # [id number]
--- NOTE | 2021-07-02 09:38 | Progress Note-Post Operative ---
Post-Operative Progess Note Surgeon (s)/Nurse First Assist (s) Surgeon AZEEM CISNEROS MD Nurse First Assist: NONE Pre-Operative Diagnosis SAME Post-Operative Diagnosis SAME Procedure & Operative Findings Date of Procedure 07/02/21 Procedure Performed/Findings RT ESWL Anesthesia Type GENERAL Estimated Blood Loss Estimated blood loss (mL): NONE Specimens/Packing Specimens Removed NONE Packing: NONE AZEEM CISNEROS MD Jul 02, 2021 09:38
--- NOTE | 2021-07-02 09:39 | Discharge Inst-Urology ---
Discharge Inst-Urology Reconcile Patient Problems Problems Reviewed?: Yes Final Diagnosis RT PROXIMAL URETERAL STONE Patient Instructions/Follow Up Plan/Assessment/Instructions Please make appointment to been seen in office in 2 weeks. KUB prior to it KUB on way home Post ESWL instructions Increase oral fluids for 48 hours and then as needed. Diet and Activity as tolerated. If questions or concerns contact your physician Or seek help at emergency department. AZEEM CISNEROS MD Jul 02, 2021 09:39
[2021-07-02] MEDS ORDERED: SEVOFLURANE (ULTANE) 15 ML INHAL SOLN ONE (09:56)
[2021-07-02] MEDS ORDERED: LIDOCAINE PF 2% 5 ML (XYLOCAINE) VIAL ONE (09:56)
[2021-07-02] MEDS ORDERED: fentaNYL INJ 100 MCG/2 ML AMP ONE (09:56)
[2021-07-02] MEDS ORDERED: MIDAZOLAM 2 MG/2 ML (VERSED) VIAL ONE (09:56)
[2021-07-02] MEDS ORDERED: proPOfol 200 MG/20 ML (DIPRIVAN) VIAL IV ONE (09:56)
[2021-07-02] MEDS ORDERED: ONDANSETRON 4 MG/2 ML (SDV) Z0FRAN ONE (09:56)
[2021-07-02] MEDS ORDERED: KETOROLAC 30 MG/ML VIAL ONE (10:43)
[2021-07-02] MEDS ORDERED: FUROSEMIDE 40 MG/4 ML INJ (LASIX) ONE (10:43)
[2021-07-02] MEDS ORDERED: PHENYLEPHRINE 100 MCG/ML 10 ML (ANESTHESIA) SYR ONE (10:43)
[2021-07-02] MEDS ORDERED: HYDROmorphone 2 MG/ML VIAL (DILAUDID) IV ONE (11:00)
[2021-07-02] MEDS ORDERED: ONDANSETRON 4 MG/2 ML (SDV) Z0FRAN IVP PRN (11:00)
[2021-07-02] MEDS ORDERED: TMSL.4C PO (11:46)
[2021-07-02] MEDS ORDERED: NITR-65 PO (11:46)
[2021-07-02] MEDS ORDERED: KETO10TA PO (11:46)
--- NOTE | 2021-07-02 11:57 | OPERATIVE REPORT ---
DATE OF SERVICE: 07/02/2021 PREOPERATIVE DIAGNOSIS: Right proximal ureteral stone. POSTOPERATIVE DIAGNOSIS: Right proximal ureteral stone. OPERATION PERFORMED: Right ESWL. SURGEON: Huseyin Cisneros MD. ANESTHESIA: General. COMPLICATIONS: None. DESCRIPTION OF PROCEDURE: Under satisfactory general anesthesia, the patient in a supine position on the ESWL table, right proximal ureteral stone was localized. Shocks were delivered reaching the kV to 6 with a total of 2500 shocks completely fragmented the stone that was not visible anymore. The patient received 30 mg of Toradol and 40 mg of Lasix IV at the end of the procedure. He tolerated the procedure and anesthesia well and was sent to recovery room in a stable condition. Job ID: [id number] DocumentID: [id number] Dictated Date: 07/02/2021 10:44:30 Patternmaker Hand Date: 07/02/2021 11:56:58 Dictated By: HUSEYIN CISNEROS MD
--- NOTE | 2021-07-02 12:22 | Diagnostic Imaging Report ---
EXAMINATION: ABDOMEN/KUB 1VIEW. INDICATION: Renal stone status post lithotripsy. COMPARISON: Earlier this same day at 7:49 AM. FINDINGS AND IMPRESSION: 1. Bowel gas and colonic stool now overlie the right renal fossa obscuring the previously noted 6 mm right renal cyst. 2. A small radiodense focus is now noted along the right lateral margin of L4 which could represent a ureteral stone that was obscured on prior radiograph. Dictated by: Dictated on workstation # [id number]
--- NOTE | 2021-07-02 13:12 | Anesthesia-General Post-Op ---
General Patient Condition Mental Status/LOC: Same as Preop Cardiovascular: Satisfactory Nausea/Vomiting: Absent Respiratory: Satisfactory Pain: Controlled Complications: Absent Post Op Complications Complications None Follow Up Care/Instructions Patient Instructions None needed. Anesthesia/Patient Condition Patient Condition Patient is doing well, no complaints, stable vital signs, no apparent adverse anesthesia problems. No complications reported per nursing. D/C home per [facility] Criteria: Yes JUAN PABLO LINDA CRNA Jul 02, 2021 13:12
== END 2021-07-02 12:45 | disposition home or self-care (01) ==
LOC: SDC 07:26
PROVIDERS: ATTEND Urology
DX: N20.1 Calculus of ureter (principal); N40.1 Benign prostatic hyperplasia with lower urinary tract symptoms; R35.1 Nocturia; R35.0 Frequency of micturition; R39.15 Urgency of urination
CPT/HCPCS: 74018; 87081

== ENCOUNTER → 2021-07-22 | Outpatient (CLI) | payer OTHER ==
[~2021-07-22] MED LIST changes: +KETO10TA PO; +NITR-65 PO
--- NOTE | 2021-07-22 13:14 | Diagnostic Imaging Report ---
INDICATION: Nephrolithiasis. EXAMINATION: KUB at 12:27 p.m. FINDINGS: There is a 5 mm calculus projecting over the inferior pole of the right kidney. Bowel gas pattern is normal. There is prostate calcification present. IMPRESSION: Suspect right nephrolithiasis. Dictated by: Dictated on workstation # [id number]
== END ==
LOC: RAD 12:13
PROVIDERS: ATTEND Urology
DX: N20.2 Calculus of kidney with calculus of ureter (principal)
CPT/HCPCS: 74018